=== PATIENT | female | born 1970 | race Caucasian/White ===

== ENCOUNTER 2023-02-16 18:40 | Emergency (ER) | payer MEDICAID ==
[~2023-02-16] VITALS: Ht 170.2 cm; Wt 68.0 kg
[2023-02-16 18:52] VITALS: BP_SYST 137
[2023-02-16] MEDS ORDERED: MORPHINE 4 MG INJ. 4 MG/ML VIAL IM ONE (19:15)
[2023-02-16] MEDS ORDERED: PERM60CR18 TP (19:27)
[2023-02-16 19:32] VITALS: BP_SYST 135
== END 2023-02-16 19:32 ==
LOC: SED 18:40
DX: B86 Scabies (principal); L29.9 Pruritus, unspecified; Z88.6 Allergy status to analgesic agent; Z88.8 Allergy status to other drugs, medicaments and biological substances; Z79.899 Other long term (current) drug therapy
CPT/HCPCS: 99283; 96372; J2270